=== PATIENT | male | born 1945 | race Caucasian/White ===

== ENCOUNTER 2019-04-21 08:23 | Observation (INO) ==
[2019-04-20 12:15] LABS: Basophils % 0.3 % (0.0-0.8); Eosinophils # 0.3 10*3/uL (0.0-0.87); Eosinophils % 3.7 % (0.00-10.9); Hematocrit 41.7 VOL% (42.0-52.0); Hemoglobin 14.1 GM/DL (14.0-18.0); Immature Granulocytes % 0.2 %; Immature Granulocytes Absolute 0.02 #; Lymphocytes # 1.9 10*3/uL (1.4-4.0); Lymphocytes % 21.3 % (21.2-54.2); Mean Corpuscular HGB Conc 33.8 GM/DL (32-36); Mean Corpuscular Volume 91.6 FL (87-102); Mean Platelet Volume 11.2 FL (9.6-12.0); Monocytes % 11.8 % (1.7-12.7); Neutrophils % 62.7 % (38.7-73.9); Platelet Count 209 T/CUMM (130-400); Red Blood Count 4.55 MC/CUMM (3.8-5.5); Red Cell Distribution Width 14.2 % (9.3-17.3); White Blood Count 8.9 T/CUMM (4-12)
[2019-04-20 12:54] LABS: Calcium 9.6 MG/DL (8.5-10.1); Osmolality,Calculated 277.1 MOS/KG (273-304)
[~2019-04-21 08:23] MED LIST: CLINDAMYCIN INJ 900 MG in PREMIX 1 EACH IV ONE
[2019-04-21] MEDS: LACTATED RINGERS 1,000 ML IV SCH (09:35)
[2019-04-21] MEDS ORDERED: CLINDAMYCIN INJ 50 ML IV ONE (10:01)
[2019-04-21] MEDS ORDERED: BUPIVACAINE MPF 0.25% 30 ML VIAL ONE (11:08)
[2019-04-21] MEDS ORDERED: LIDOCAINE 1%/EPI INJ 20 ML VIAL ONE (11:08)
[2019-04-21] MEDS ORDERED: propofoL 200 MG/20 ML VIAL IV ONE (11:46)
[2019-04-21] MEDS ORDERED: MIDAZOLAM 2 MG/2 ML VIAL ONE (11:46)
[2019-04-21] MEDS ORDERED: fentaNYL 100 MCG/2 ML VIAL ONE (11:46)
[2019-04-21] MEDS ORDERED: ONDANSETRON 4 MG/2 ML VIAL ONE (12:08)
[2019-04-21] MEDS ORDERED: ONDANSETRON 4 MG/2 ML VIAL IV ONE (12:11)
[2019-04-21] MEDS ORDERED: IBUPROFEN 400 MG TABLET PO PRN (12:48)
[2019-04-21] MEDS ORDERED: GLUCAGON 1 MG VIAL IM PRN (12:54)
[2019-04-21] MEDS ORDERED: MORPHINE 4 MG/1 ML VIAL IV PRN (12:54)
[2019-04-21] MEDS ORDERED: ALBUTEROL/IPRATROPIUM 3 ML NEB RESP TX PRN (12:54)
[2019-04-21] MEDS ORDERED: DEXTROSE 10% 250 ML BAG IV PRN (12:54)
[2019-04-21] MEDS ORDERED: NITROGLYCERIN SL 0.4 MG TABLET SL PRN (12:59)
[2019-04-21] MEDS: SOTALOL 80 MG TABLET PO SCH ×2 (14:30→22:44)
[2019-04-21] MEDS: POTASSIUM CHLORIDE RIDER 10 MEQ in PREMIX 1 EACH IV SCH ×2 (14:30→16:20)
[2019-04-21] MEDS: FUROSEMIDE 80 MG TABLET PO SCH (15:06)
[2019-04-21] MEDS: ENOXAPARIN 150 MG/ML SYRINGE SUBCUT SCH (15:06)
[2019-04-21] MEDS: INSULIN REGULAR 100 UNIT/ML SUBCUT SCH ×2 (17:19→22:42)
[2019-04-21] MEDS ORDERED: SIMVASTATIN 10 MG TABLET PO SCH (21:00)
[2019-04-22 06:13] LABS: Basophils # 0.1 10*3/uL (0.0-0.2); Basophils % 0.6 % (0.0-0.8); Eosinophils # 0.3 10*3/uL (0.0-0.87); Eosinophils % 3.7 % (0.00-10.9); Hematocrit 37.8 VOL% (42.0-52.0); Hemoglobin 12.2 GM/DL (14.0-18.0); Immature Granulocytes % 0.4 %; Immature Granulocytes Absolute 0.04 #; Lymphocytes # 2.4 10*3/uL (1.4-4.0); Lymphocytes % 27.1 % (21.2-54.2); Mean Corpuscular HGB Conc 32.3 GM/DL (32-36); Mean Corpuscular Volume 94.5 FL (87-102); Mean Platelet Volume 10.9 FL (9.6-12.0); Monocytes % 9.8 % (1.7-12.7); Neutrophils % 58.4 % (38.7-73.9); Platelet Count 194 T/CUMM (130-400); Red Cell Distribution Width 14.3 % (9.3-17.3)
[2019-04-22 06:28] LABS: Calcium 8.5 MG/DL (8.5-10.1); Osmolality,Calculated 282.7 MOS/KG (273-304)
[2019-04-22] MEDS ORDERED: PANTOPRAZOLE 40 MG TABLET PO SCH (06:30)
[2019-04-22] MEDS ORDERED: BREO INH SCH (09:00)
[2019-04-22] MEDS ORDERED: ASPIRIN EC 81 MG TABLET PO SCH (09:00)
[2019-04-22] MEDS ORDERED: POTASSIUM CHLORIDE 20 MEQ TABLET PO SCH (09:00)
[2019-04-22] MEDS ORDERED: GLIMEPIRIDE 2 MG TABLET PO SCH (09:00)
[2019-04-22] MEDS ORDERED: NIACIN 500 MG TABLET PO SCH (09:00)
[2019-04-22] MEDS ORDERED: MAGNESIUM SULF RIDER 2 GM in PREMIX 1 EACH IV ONE (09:00)
[2019-04-22] MEDS: ENOXAPARIN 150 MG/ML SYRINGE SUBCUT SCH (09:14)
[2019-04-22] MEDS: SOTALOL 80 MG TABLET PO SCH (09:15)
[2019-04-22] MEDS: INSULIN REGULAR 100 UNIT/ML SUBCUT SCH ×2 (09:15→12:33)
[2019-04-22] MEDS: FUROSEMIDE 80 MG TABLET PO SCH (09:15)
[2019-04-22] MEDS ORDERED: POTASSIUM CHLORIDE 20 MEQ TABLET PO ONE (11:00)
[2019-04-22 12:01] VITALS: BP 116/66
[2019-04-22] MEDS: LACTATED RINGERS 1,000 ML IV SCH (14:27)
[2019-04-22] MEDS ORDERED: APIXABAN 5 MG TABLET PO SCH (21:00)
[2019-04-23] MEDS ORDERED: POTASSIUM CHLORIDE 20 MEQ TABLET PO SCH (09:00)
== END 2019-04-22 14:27 | disposition home health service (06) ==
LOC: N.SDSINP 08:23 → N.2E 08:23 → N.OR 08:23 → N.2E 13:58
PROVIDERS: ADMIT Surgery; ATTEND Surgery